=== PATIENT | female | born 1970 | race Two or more races ===

== ENCOUNTER 2023-04-02 06:41 | Day surgery (SDC) | payer OTHER ==
[2023-04-02] MEDS ORDERED: MACROBID 100 M100 MG PO (14:01)
[2023-04-02] MEDS ORDERED: TRAM1TAB98 PO (14:01)
== END 2023-04-02 18:40 | disposition home or self-care (01) ==
LOC: CIR.AMB 06:41
PROVIDERS: ATTEND Obstetrics & Gynecology Gynecology
DX: N39.3 Stress incontinence (female) (male) (principal); Z20.822 Contact with and (suspected) exposure to COVID-19; I10 Essential (primary) hypertension
CPT/HCPCS: 57288; C1771